=== PATIENT | male | born 1980 | race Caucasian/White ===

== ENCOUNTER 2016-10-10 19:34 | Emergency (ER) | payer OTHER ==
[~2016-10-10] VITALS: Ht 182.9 cm; Wt 90.7 kg
--- NOTE | 2016-10-10 19:49 | NUR ---
Arrival: Pt ambulated to ED 8, placed on monitor. Assessment as charted.
[2016-10-10 19:53] VITALS: BP 140/94
== END 2016-10-10 20:24 | disposition left against medical advice (07) ==
LOC: ER 19:34
DX: S69.91XA Unspecified injury of right wrist, hand and finger(s), initial encounter (principal); Z53.21 Procedure and treatment not carried out due to patient leaving prior to being seen by health care provider; X50.1XXA Overexertion from prolonged static or awkward postures, initial encounter; Y93.89 Activity, other specified; Y92.89 Other specified places as the place of occurrence of the external cause; Y99.8 Other external cause status
CPT/HCPCS: 99281